=== PATIENT | male | born 1960 | race Caucasian/White ===

== ENCOUNTER 2018-02-01 05:27 | Day surgery (SDC) | payer BC ==
[2018-02-01] MEDS ORDERED: fentaNYL 100 MCG/2 ML SDV IV ONE ×3 (05:28→06:38)
[2018-02-01] MEDS ORDERED: Midazolam 1 MG/ML 2 ML SDV IV ONE ×7 (05:28→06:44)
[2018-02-01] MEDS ORDERED: Sodium Chloride 0.9% 10 ML Syringe FLUSH PRN (06:00)
[2018-02-01] MEDS ORDERED: Dextrose 5%-0.45% NaCl 1,000 ML IV SCH (06:00)
[2018-02-01] MEDS ORDERED: Midazolam 1 MG/ML 2 ML SDV ONE (06:08)
[2018-02-01] MEDS ORDERED: fentaNYL 100 MCG/2 ML SDV ONE (06:08)
--- NOTE | 2018-02-01 07:36 | OR ---
DATE: 02/01/2018 PROCEDURE PERFORMED: Total colonoscopy and multiple cold snare polypectomies. INSTRUMENT USED: CF-H180AL Olympus videocolonoscope. PREMEDICATIONS: Fentanyl 100 mcg intravenous and Versed 4 mg intravenous. Nasal 2 L O2 cannula. The procedure was done under pulse oximetry, BP recording, and farm machine operator. INDICATION: The patient with previous colonic adenoma. Surveillance colonoscopic examination is done for detection of any polypoid lesions and removal, endoscopic hemostasis therapy if needed. DESCRIPTION OF PROCEDURE: Initial rectal exam was unremarkable. Rigid anoscopy was normal. The colonoscope was passed with ease up to the ileocecal area, photographs were taken of the normal-appearing cecum identified by landmarks of appendiceal orifice and double-bulged ileocecal folds. No bleeding was noted from any of the visualized areas at the commencement of the examination. No stricture. No vascular ectasia. No large isolated ulcerations seen. No evidence of diffuse inflammatory bowel disease in the form of friability, contact bleeding, or ulcerations. The bowel preparation was adequate. Probing the proximal sides of folds and flexures, clearing up the stool material, withdrawal of the scope was made. In the proximal and mid transverse colon, multiple 3 mm sized benign-appearing polyps, 3 in number, were noted; photograph was taken of the largest polyp; multiple cold snare polypectomies were done; the tissues were retrieved and sent for histopathology. In the distal descending colon, another 3 mm sized benign-appearing polyp was noted, cold snare polypectomy was done, the tissue was retrieved and sent for histopathology. No bleeding was noted from any of the visualized areas at the completion of examination. IMPRESSION: Multiple diminutive colonic polyps. The patient tolerated the procedure well. [facility] /[id number]
== END 2018-02-01 09:07 | disposition home or self-care (01) ==
LOC: DL.ENDO 05:27
PROVIDERS: ATTEND Internal Medicine Gastroenterology
DX: Z12.11 Encounter for screening for malignant neoplasm of colon (principal); D12.4 Benign neoplasm of descending colon; D12.3 Benign neoplasm of transverse colon; Z86.010 Personal history of colon polyps
CPT/HCPCS: 45385; J2250; J3010; J7042

== ENCOUNTER 2020-08-19 16:36 | Emergency (ER) | payer BC ==
[2020-08-19] MEDS ORDERED: Acetaminophen/HYDROcodone 325-10 MG Tab PO ONE ×2 (16:37→16:42)
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
[2020-08-19] MEDS ORDERED: Lidocaine 5% Oint 35.44 GM Tube TOP ONE (16:42)
[2020-08-19] MEDS ORDERED: Bacitracin Oint 1 GM U/D Packet TOP ONE (16:42)
[2020-08-19] MEDS ORDERED: Silver Sulfadiazine 1% Crm 50 GM Tube TOP ONE (16:43)
[2020-08-19] MEDS ORDERED: Acetaminophen/HYDROcodone 325-10 MG Tab ONE (17:21)
== END 2020-08-19 17:30 | disposition home or self-care (01) ==
LOC: DL.ED 16:36
DX: T20.29XA Burn of second degree of multiple sites of head, face, and neck, initial encounter (principal); T23.162A Burn of first degree of back of left hand, initial encounter; T23.161A Burn of first degree of back of right hand, initial encounter; K21.9 Gastro-esophageal reflux disease without esophagitis; I10 Essential (primary) hypertension; Z79.82 Long term (current) use of aspirin; Z79.899 Other long term (current) drug therapy; Z88.2 Allergy status to sulfonamides; X08.8XXA Exposure to other specified smoke, fire and flames, initial encounter
CPT/HCPCS: 16020; 99283; A9270

== ENCOUNTER 2020-09-12 10:25 | Day surgery (SDC) | payer BC ==
[2020-09-12] MEDS ORDERED: Dexamethasone 4 MG/ML SDV IV ONE (10:26)
[2020-09-12] MEDS ORDERED: Midazolam 1 MG/ML 2 ML SDV IV ONE (10:26)
[2020-09-12] MEDS ORDERED: Sodium Chloride 0.9% 10 ML Syringe IV ONE (10:26)
[2020-09-12] MEDS ORDERED: Proparacaine 0.5% Ophth Soln 15 ML Bottle EYERT ONE (10:45)
[2020-09-12] MEDS ORDERED: Sodium Chloride 0.9% 10 ML Syringe FLUSH PRN (10:45)
[2020-09-12] MEDS ORDERED: Povidone-Iodine 5% Sterile Ophth Soln 30 ML Bottle EYERT ONE ×2 (10:45→11:42)
[2020-09-12] MEDS ORDERED: Phenylephrine 10% Ophth Soln 5 ML Bot EYERT PRN (10:45)
[2020-09-12] MEDS ORDERED: Tropicamide 1% Ophth Soln 15 ML Bottle EYERT ONE (10:45)
[2020-09-12] MEDS ORDERED: Phenylephrine 10% Ophth Soln 5 ML Bot EYERT ONE (10:45)
[2020-09-12] MEDS ORDERED: Ondansetron 4 MG/2 ML SDV IVPUSH PRN (10:45)
[2020-09-12] MEDS ORDERED: Acetaminophen 325 MG Tab PO PRN (10:45)
[2020-09-12] MEDS ORDERED: Cataract Ophth Solution EYERT ONE (10:45)
[2020-09-12] MEDS ORDERED: Timolol Maleate 0.5% Ophth Soln 5 ML Bottle EYERT ONE (10:45)
[2020-09-12] MEDS ORDERED: Moxifloxacin 0.5% Ophth Soln 3 ML Bottle EYERT ONE (10:45)
[2020-09-12] MEDS ORDERED: Tetracaine HCl/PF 0.5% 4 ML Bottle EYERT ONE (11:41)
[2020-09-12] MEDS ORDERED: Diclofenac Sodium 0.1% Ophth Soln 5 ML Bottle EYERT ONE (11:42)
[2020-09-12] MEDS ORDERED: Apraclonidine 0.5% Ophth Soln 5 ML Bot EYERT ONE (11:42)
[2020-09-12] MEDS ORDERED: Dexamethasone/Neomycin/Polymyxin B Ophth Oint 3.5 GM Tube EYERT ONE (11:42)
[2020-09-12] MEDS ORDERED: Lidocaine 1% 30 ML SDV ONE (11:43)
[2020-09-12] MEDS ORDERED: Vancomycin 500 MG SDV EYERT ONE (11:43)
[2020-09-12] MEDS ORDERED: Chondroitin Sulfate/Hyaluronate Sodium Ophth Inj 0.75 ML Syringe EYERT ONE (11:43)
[2020-09-12] MEDS ORDERED: Balanced Salt Solution Ophth Irrig 500 ML Bottle IOCULAR ONE (11:43)
--- NOTE | 2020-09-17 07:02 | OR ---
DATE: 09/12/2020 PREOPERATIVE DIAGNOSIS: Visually significant mixed cataract, right eye. POSTOPERATIVE DIAGNOSIS: Visually significant mixed cataract, right eye. PROCEDURE: Extracapsular cataract extraction with intraocular lens implant, right eye. ANESTHESIA: Topical/local MAC. COMPLICATIONS: None. INDICATION: Mr. Lugo was seen in the clinic with complaints of blurred vision. Examination revealed visually significant mixed cataract. I explained options, offered cataract surgery, and I explained risks, including, but not limited to, infection, retinal detachment, loss of vision, need for additional surgery, and risks associated with anesthesia. We discussed implant options. He has requested a monofocal implant. He understands that he may require glasses for best vision following surgery. OPERATIVE DESCRIPTION: After informed consent was obtained and the risks, benefits, and alternatives were explained, the patient was brought to the operative suite and topical anesthesia was administered. The patient was then prepped and draped in the sterile fashion and attention was placed on the right eye. A sterile lid speculum was placed into the right eye to allow operative exposure. A full-thickness paracentesis was made in the temporal portion of the operative eye. Preservative-free lidocaine 0.1 mL was injected into the anterior chamber followed by viscoelastic. A full-thickness corneal incision was then made into the anterior chamber. A bent needle cystotome was used to create a small marisol in the anterior capsule. The capsulorrhexis forceps was then used to create a 360-degree curvilinear capsulorrhexis. The nucleus was then removed using a phacoemulsification handpiece and the remaining cortical material was then removed with irrigation and aspiration handpiece. Following removal of the cortical material, the capsular bag was then inspected and noted to be free of any holes or tears. Viscoelastic was then injected into the capsular bag and the intraocular lens was inserted into the capsular bag. The viscoelastic material was then removed from both the anterior and posterior chambers and from behind the IOL. The lens and capsular bag were then reinspected. The IOL was well centered and the capsular bag intact. The wound and paracentesis sites were inspected and hydrated with balanced saline solution. Both were found to be self- sealing. The intraocular pressure was assessed digitally and found to be within normal range. A good red reflex was noted at the completion of the procedure. No complications occurred during the operation. At the completion of the procedure, Maxitrol, Voltaren, and Iopidine drops were placed into the operative eye. A sterile eye shield was placed over the operative eye and the patient was transported to the postoperative recovery area having tolerated the procedure well. Postoperative instructions were given along with a postoperative appointment. The patient was advised to call with any questions or concerns. [facility] /[id number]
== END 2020-09-12 12:55 | disposition home or self-care (01) ==
LOC: DL.SDS 10:25
PROVIDERS: ATTEND Ophthalmology
DX: H25.811 Combined forms of age-related cataract, right eye (principal); I10 Essential (primary) hypertension; E78.5 Hyperlipidemia, unspecified; F32.9 Major depressive disorder, single episode, unspecified; Z79.899 Other long term (current) drug therapy; Z88.8 Allergy status to other drugs, medicaments and biological substances
CPT/HCPCS: A9270-GY; J1100; J2001; J2250; J3370; V2632